=== PATIENT | female | born 1970 | race African-American/Black ===

== ENCOUNTER 2020-07-18 08:43 | Day surgery (SDC) | payer BC, OTHER ==
[~2020-07-18 08:43] MED LIST: Lactated Ringers 1,000 ML IV SCH; Lidocaine 2% 5 ML SDV ONE; Propofol 200 MG/20 ML SDV ONE; Sodium Chloride 0.9% 10 ML SDV IV PRN; Sodium Chloride 0.9% 10 ML Syringe FLUSH PRN; Sodium Chloride 0.9% 2.5 ML Syringe FLUSH PRN; fentaNYL 100 MCG/2 ML SDV ONE
--- NOTE | 2020-07-18 09:40 | PCM.PREANE ---
Preanesthetic Assessment - Anesthesia/Transfusion/Family Hx Anesthesia History: Prior Anesthesia Without Reaction Family History of Anesthesia Reaction: No Transfusion History: No Prior Transfusion(s) - Review of Systems General: No Symptoms Pulmonary: No Symptoms Cardiovascular: No Symptoms Gastrointestinal: No Symptoms Neurological: No Symptoms Other: Reports: None - Physical Assessment NPO Status Date: 07/17/20 Vital Signs: Last Vital Signs Temp 97.3 F 07/18/20 09:11 Pulse 86 07/18/20 09:11 Resp 16 07/18/20 09:11 BP 143/84 H 07/18/20 09:11 Pulse Ox 97 07/18/20 09:11 Height: 5 ft 2 in Weight: 106.594 kg ASA Class: 2 Mental Status: Alert & Oriented x3 Airway Class: Mallampati = 2 Dentition: Reports: Normal Dentition ROM/Head Extension: Full Lungs: Clear to Auscultation, Normal Respiratory Effort Cardiovascular: Regular Rate, Regular Rhythm - Allergies Allergies/Adverse Reactions: Allergies Allergy/AdvReac Type Severity Reaction Status Date / Time No Known Allergies Allergy Verified 07/13/20 09:20 - Blood Blood Available: No - Anesthesia Plan Pre-Op Medication Ordered: None - Acknowledgements Anesthesia Type Planned: General Anesthesia (tiva) Pt an Appropriate Candidate for the Planned Anesthesia: Yes Alternatives and Risks of Anesthesia Discussed w Pt/Guardian: Yes Pt/Guardian Understands and Agrees with Anesthesia Plan: Yes Additional Comments: pmh: mo, dm2- arrival glucose =143, htn, hx of bcg imunization, no hx of TB PLAN: tiva PreAnesthesia Questionnaire Other HEENT History: wears glasses Cardiovascular History: Reports: Hypertension Respiratory History: Reports: TB Other Respiratory History: states in the past had TB while in [place] Gastrointestinal History: Reports: None Genitourinary History: Reports: None 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: Musculoskeletal History: Reports: None Neurological History: Reports: None Psychiatric History: Reports: None Endocrine/Metabolic History: Reports: Diabetes, Type II Hematologic History: Reports: Anemia, Iron Deficiency Immunologic History: Reports: None Oncologic (Cancer) History: Reports: None Dermatologic History: Reports: None - Infectious Disease History Infectious Disease History: Reports: TB Other Infectious Disease History: states had TB in the past while in [place] - Past Surgical History Head Surgeries/Procedures: Reports: None Female Surgical History: Reports: Section - SUBSTANCE USE Smoking Status *Q: Never Smoker - HOME MEDS Home Medications: Home Meds Ferrous Sulfate [Iron] 1 tab PO DAILY 09/08/15 [History] Losartan [Cozaar] 100 mg PO DAILY 09/08/15 [History] metFORMIN [Glucophage] 1,000 mg PO BID 09/08/15 [History] Empagliflozin [Jardiance] 25 mg PO DAILY 07/13/20 [History] Ozempic 0.5 mg SQ WEEKLY 07/13/20 [History] Potassium Chloride [K-Tab] 10 meq PO DAILY 07/13/20 [History] amLODIPine Besylate [Amlodipine Besylate] 10 mg PO DAILY 07/13/20 [History] hydroCHLOROthiazide [Hydrochlorothiazide] 1 tab PO DAILY 07/13/20 [History] - CURRENT (IN HOUSE) MEDS Current Meds: Current Medications Lactated Ringer's (Ringers, Lactated) 1,000 mls @ 125 mls/hr IV ASDIRECTED ZHANG Last Admin: 07/18/20 09:35 Dose: 125 mls/hr Documented by: Sodium Chloride (Saline Flush) 10 ml FLUSH ASDIRECTED PRN PRN Reason: Keep Vein Open Sodium Chloride (Saline Flush) 2.5 ml FLUSH ASDIRECTED PRN PRN Reason: Keep Vein Open Sodium Chloride (Saline Flush) 10 ml FLUSH ASDIRECTED PRN PRN Reason: Keep Vein Open Sodium Chloride (Saline Flush) 2.5 ml FLUSH ASDIRECTED PRN PRN Reason: Keep Vein Open Sodium Chloride (Normal Saline) 10 ml IV ASDIRECTED PRN PRN Reason: IV Use Discontinued Medications Fentanyl (Sublimaze) Confirm Administered Dose 100 mcg .ROUTE .STK-MED ONE Stop: 07/18/20 06:57 Lidocaine (Xylocaine-Mpf 2%) Confirm Administered Dose 5 ml .ROUTE .STK-MED ONE Stop: 07/18/20 06:56 Propofol (Diprivan 20 Ml) Confirm Administered Dose 400 mg .ROUTE .STK-MED ONE Stop: 07/18/20 06:57
--- NOTE | 2020-07-18 10:05 | PCM.OPNOTE ---
- General Post-Op/Procedure Note Date of Surgery/Procedure: 07/18/20 Operative Procedure(s): Screening colonoscopy. Findings: Normal colonoscopy. Pre Op Diagnosis: Screening colonoscopy. Post-Op Diagnosis: Normal colonoscopy. Anesthesia Technique: WILBERTO Primary Surgeon: Donna Bray Complications: None. Condition: Stable
[2020-07-18 10:31] VITALS: BP 121/74; PULSE 81
--- NOTE | 2020-07-18 10:44 | PCM.POSTAN ---
POST ANESTHESIA ASSESSMENT - MENTAL STATUS Mental Status: Alert, Oriented - VITAL SIGNS Vital Signs: Last Vital Signs Temp 97.2 F 07/18/20 10:25 Pulse 81 07/18/20 10:25 Resp 14 07/18/20 10:25 BP 121/74 07/18/20 10:25 Pulse Ox 99 07/18/20 10:25 - RESPIRATORY Respiratory Status: Respiratory Rate WNL, Airway Patent, O2 Saturation Stable - CARDIOVASCULAR CV Status: Pulse Rate WNL, Blood Pressure Stable - GASTROINTESTINAL GI Status: No Symptoms - POST OP HYDRATION Hydration Status: Adequate & Stable
--- NOTE | 2020-07-18 10:44 | PCM48HPAN ---
Post Anesthesia Note - EVALUATION WITHIN 48HRS OF ANESTHETIC Vital Signs in Normal Range: Yes Patient Participated in Evaluation: Yes Respiratory Function Stable: Yes Airway Patent: Yes Cardiovascular Function Stable: Yes Hydration Status Stable: Yes Pain Control Satisfactory: Yes Nausea and Vomiting Control Satisfactory: Yes Mental Status Recovered: Yes Vital Signs: Last Vital Signs Temp 97.2 F 07/18/20 10:25 Pulse 81 07/18/20 10:25 Resp 14 07/18/20 10:25 BP 121/74 07/18/20 10:25 Pulse Ox 99 07/18/20 10:25
--- NOTE | 2020-07-18 21:10 | OR ---
SURGEON: DONNA BRAY MD DATE OF PROCEDURE: 07/18/2020 PREOPERATIVE DIAGNOSIS: Screening colonoscopy. POSTOPERATIVE DIAGNOSIS: Normal colonoscopy. PROCEDURE PERFORMED: Screening colonoscopy. PRIMARY SURGEON: Donna Bray MD. ANESTHESIA: MAC. INSTRUMENT USED: Olympus colonoscope. EXTENT OF EXAM: To the cecum. PREPARATION: Good. LIMITATIONS: None. INDICATIONS FOR EXAMINATION: The patient is a 50-year-old female who presents for screening colonoscopy. The patient and I discussed the procedure, expected perioperative course, and risks including bleeding, infection, or damage to surrounding structures including perforation. The patient verbalized understanding and wishes to proceed. PROCEDURE IN DETAIL: The patient was brought to the endoscopy suite and placed in the left lateral decubitus position. A time-out was completed verifying the patient's name, age, date of , allergies, and procedure to be performed. Monitored anesthesia care was induced and continuous oxygen was provided via face mask throughout the procedure. After adequate sedation was achieved, a digital rectal exam was performed. This exam was within normal limits. A well-lubricated colonoscope was inserted in the rectum and advanced under direct visualization to the level of the cecum. The cecum was identified by both visual and anatomic landmarks. A photograph was taken of the cecal cap, however, I was unable to retroflex the scope within the cecum due to looping of the scope more proximally. The scope was then fully withdrawn while examining the color, texture, anatomy, and integrity of the mucosa from the cecum to the anal canal. The findings were consistent with normal colonic mucosa. The scope was then brought into the rectum and retroflexed to allow visualization of the anal canal opening. This appeared normal and a photograph was taken. The scope was then straightened out and fully withdrawn. The cecum to anus time was 7 minutes. The patient tolerated the procedure well and was transferred to the PACU in stable condition. ENDOSCOPIC DIAGNOSIS: Normal colonoscopy. RECOMMENDATIONS: Follow up in clinic in 10 years. MARY JO / AMY /[id number]
== END 2020-07-18 10:50 | disposition home or self-care (01) ==
LOC: MW.SDS 08:43
PROVIDERS: ATTEND Surgery
DX: Z12.11 Encounter for screening for malignant neoplasm of colon (principal); E11.9 Type 2 diabetes mellitus without complications; I10 Essential (primary) hypertension; E66.01 Morbid (severe) obesity due to excess calories; Z79.899 Other long term (current) drug therapy; Z79.84 Long term (current) use of oral hypoglycemic drugs; Z68.41 Body mass index [BMI] 40.0-44.9, adult; Z01.812 Encounter for preprocedural laboratory examination; Z20.828 Contact with and (suspected) exposure to other viral communicable diseases
CPT/HCPCS: 45378; 82962; J2001; J2704; J3010; J7120; 00812

== ENCOUNTER 2020-07-24 07:38 | Observation (INO) | payer BC, OTHER ==
--- NOTE | 2020-07-24 08:02 | EDM.PDOC ---
ED [facility] GENERAL MEDICAL PROBLEM - General Chief Complaint: General Stated Complaint: RT SIDE OF BODY IS NUMB Time Seen by Provider: 07/24/20 07:40 Source of Information: Reports: Patient, Old Records History Limitations: Reports: No Limitations - History of Present Illness INITIAL COMMENTS - FREE TEXT/NARRATIVE: There is a very pleasant 50-year-old female with a past medical history of diabetes mellitus and hypertension presenting with right-sided body numbness. She states that around 0630 this morning, she woke up from sleep with numbness to her entire right upper extremity including the hand, the right thigh, and the right calf. No numbness involving the face or the torso. She states that this numb sensation has improved throughout the morning but has not totally gone away. She denies any facial numbness or weakness, vision changes, dysarthria, dysphasia, nausea, vomiting, headache, neck pain or stiffness, extremity weakness, gait changes, or history of CVA or TIA. No recent history of any head trauma. ROS: A 10-point review of systems was negative, except as noted in the HPI (or in the ROS section of this note). Past medical history: Reviewed, no additional pertinent history. Surgical history: Reviewed in system, no additional pertinent history. Social history: Reviewed in system, no additional pertinent history. Family history: Reviewed in system, no additional pertinent history. PHYSICAL EXAM Vital signs reviewed. Nursing notes reviewed. Constitutional: Awake, alert, non-distressed. Head: Normocephalic, atraumatic. Eyes: EOMI, conjunctiva normal, no discharge, no scleral icterus. Pupils 3 mm bilaterally. Ears, Nose, Throat: External ears and nose normal, moist oral mucosa. Cardiovascular: 2+ radial pulse, capillary refill less than 2 seconds. Pulmonary: normal work of breathing, no accessory muscle use. Abdomen/GI: Soft, nontender, nondistended, no guarding or rigidity, no masses. Musculoskeletal: No deformities. Integumentary: Appropriate color for ethnicity, warm, dry, no pallor or jaundice, no rash. Neurologic: Awake, alert, and oriented x3. Cranial nerves II through XII intact. No facial droop or dysarthria. No temporal artery tenderness. Supple neck with normal range of motion. No pronator drift. Normal fjletr-kbrj-aptele and jhly-mp-hwht. No dysdiadochokinesia. 5/5 strength in all extremities. Sensation intact to light touch x4. Normal gait. Normal visual laureano, no field cuts. Able to sit, stand, and ambulate without assistance. Psychiatric: Appropriate mood and affect, normal thought process. - Related Data Allergies Allergy/AdvReac Type Severity Reaction Status Date / Time No Known Allergies Allergy Verified 07/24/20 07:43 Home Meds: Home Meds Ferrous Sulfate [Iron] 1 tab PO DAILY 09/08/15 [History] Losartan [Cozaar] 100 mg PO DAILY 09/08/15 [History] metFORMIN [Glucophage] 1,000 mg PO BID 09/08/15 [History] Empagliflozin [Jardiance] 25 mg PO DAILY 07/13/20 [History] Ozempic 0.5 mg SQ WEEKLY 07/13/20 [History] Potassium Chloride [K-Tab ER] 10 meq PO DAILY 07/13/20 [History] amLODIPine Besylate [Amlodipine Besylate] 10 mg PO DAILY 07/13/20 [History] hydroCHLOROthiazide [Hydrochlorothiazide] 1 tab PO DAILY 07/13/20 [History] Past Medical History Other HEENT History: wears glasses Cardiovascular History: Reports: Hypertension Respiratory History: Reports: TB Other Respiratory History: states in the past had TB while in [place] Gastrointestinal History: Reports: None Genitourinary History: Reports: None 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: Musculoskeletal History: Reports: None Neurological History: Reports: None Psychiatric History: Reports: None Endocrine/Metabolic History: Reports: Diabetes, Type II, Obesity/BMI 30+ Hematologic History: Reports: Anemia, Iron Deficiency Immunologic History: Reports: None Oncologic (Cancer) History: Reports: None Dermatologic History: Reports: None - Infectious Disease History Infectious Disease History: Reports: Chicken Pox Other Infectious Disease History: states had TB in the past while in [place] - Past Surgical History Head Surgeries/Procedures: Reports: None GI Surgical History: Reports: Colonoscopy Female Surgical History: Reports: Section Social & Family History - Family History Family Medical History: Noncontributory - Tobacco Use Smoking Status *Q: Never Smoker - Recreational Drug Use Recreational Drug Use: No ED ROS GENERAL - Review of Systems Review Of Systems: See Below ED EXAM, NEURO - Physical Exam Exam: See Below EKG INTERPRETATION EKG Interpretation Comments: 12-Lead ECG Interpretation Acquired: 8:43 AM Rhythm: Sinus rhythm Rate: 79 bpm [place]: Normal Intervals: Normal Ectopy: None RV Strain: No obvious RV strain pattern. ST Segments/T-Waves: No notable changes Acute Ischemic Changes: None apparent Interpretation: No STEMI Course - Vital Signs Text/Narrative:: 50-year-old female with right-sided numbness. Patient hemodynamically stable, afebrile, well-appearing, looks nontoxic. Differential diagnosis includes but is not limited to: CVA, TIA, neuropathy, vitamin deficiency, etc. 0820: Neurologic examination is negative except for subjective diminished sensation over the right upper and lower extremities. Otherwise no focal findings. Given very minor symptoms, patient is not a candidate for systemic thrombolysis and we will not call a stroke code, there are no signs to suggest a large vessel occlusion. We discussed the work-up for CVA versus TIA. Ordered aspirin, IV access, labs, ECG, and CT scans. 1057: Noncontrast head CT shows an old right-sided infarct of the caudate nucleus but no acute changes. Patient had some mild throat itching after receiving IVP contrast but has no convincing signs of anaphylaxis. Did order some p.o. diphenhydramine but she does not need epinephrine or steroids at this point. Awaiting CTA reads of head and neck. CBC reassuring. Coagulation markers normal. Chemistry panel shows moderate hypokalemia and hyperglycemia. Troponin testing negative. 1126: Angiogram series of the head and neck are negative. We are waiting for a COVID test. Plan for observation stay for reevaluation, possible MRI, and correction of hypokalemia. I spoke with the hospitalist Dr. Scott Padilla who agrees to admit. Last Recorded V/S: Last Vital Signs Temp 36.3 C 07/24/20 07:44 Pulse 77 07/24/20 09:14 Resp 17 07/24/20 08:44 BP 125/67 07/24/20 09:14 Pulse Ox 99 07/24/20 08:44 - Orders/Labs/Meds Orders: Active Orders 24 hr Category Date Time Status Admission Status [Patient Status] [ADT] Stat ADT 07/24/20 11:25 Ordered Assess Neurological Status [RC] CONTINUOUS Care 07/24/20 08:16 Active Cardiac Monitoring [RC] CONTINUOUS Care 07/24/20 08:16 Active EKG 12 Lead [EKG Documentation Completion] [RC] STAT Care 07/24/20 08:17 Active Height and Weight [RC] UPON Care 07/24/20 08:16 Active NIH Stroke Scale [RC] STAT Care 07/24/20 08:16 Active Oxygen Therapy, ED [RC] ASDIRECTED Care 07/24/20 08:16 Active CORONAVIRUS COVID-19 ALONDRA [MOLEC] Stat Lab 07/24/20 10:39 Received Sodium Chloride 0.9% [Normal Saline] Med 07/24/20 08:16 Active 10 ml IV ASDIRECTED PRN Sodium Chloride 0.9% [Saline Flush] Med 07/24/20 08:16 Active 10 ml FLUSH ASDIRECTED PRN Sodium Chloride 0.9% [Saline Flush] Med 07/24/20 08:16 Active 2.5 ml FLUSH ASDIRECTED PRN Peripheral IV Insertion Adult [OM.PC] Stat Oth 07/24/20 08:16 Ordered Peripheral IV Insertion Adult [OM.PC] Stat Oth 07/24/20 08:16 Ordered Medication Orders Sodium Chloride (Saline Flush) 10 ml FLUSH ASDIRECTED PRN PRN Reason: Keep Vein Open Last Admin: 07/24/20 08:27 Dose: 10 ml Documented by: KAJALKER Sodium Chloride (Saline Flush) 2.5 ml FLUSH ASDIRECTED PRN PRN Reason: Keep Vein Open Last Admin: 07/24/20 08:27 Dose: 2.5 ml Documented by: FEDLKER Sodium Chloride (Normal Saline) 10 ml IV ASDIRECTED PRN PRN Reason: IV Use Labs: Laboratory Tests 07/24/20 07/24/20 07/24/20 Range/Units 08:35 08:35 08:35 WBC 10.22 (4.0-11.0) K/uL RBC 5.29 (4.30-5.90) M/uL Hgb 14.2 (12.0-16.0) g/dL Hct 43.3 (36.0-46.0) % MCV 81.9 (80.0-98.0) fL MCH 26.8 L (27.0-32.0) pg MCHC 32.8 (31.0-37.0) g/dL RDW Std Deviation 46.9 (28.0-62.0) fl RDW Coeff of Guy 16 H (11.0-15.0) % Plt Count 303 (150-400) K/uL MPV 10.30 (7.40-12.00) fL Neut % (Auto) 58.9 (48.0-80.0) % Lymph % (Auto) 33.2 (16.0-40.0) % Gonzales % (Auto) 6.0 (0.0-15.0) % Eos % (Auto) 1.6 (0.0-7.0) % Baso % (Auto) 0.3 (0.0-1.5) % Neut # (Auto) 6.0 H (1.4-5.7) K/uL Lymph # (Auto) 3.4 H (0.6-2.4) K/uL Gonzales # (Auto) 0.6 (0.0-0.8) K/uL Eos # (Auto) 0.2 (0.0-0.7) K/uL Baso # (Auto) 0.0 (0.0-0.1) K/uL Nucleated RBC % 0.0 /100WBC Nucleated RBCs # 0 K/uL INR 1.00 APTT 26.7 (18.6-31.3) SEC Sodium 138 (136-145) mmol/L Potassium 2.7 L (3.5-5.1) mmol/L Chloride 101 (98-107) mmol/L Carbon Dioxide 27.6 (21.0-32.0) mmol/L BUN 8 (7.0-18.0) mg/dL Creatinine 0.8 (0.6-1.0) mg/dL Est Cr Clr Drug Dosing 65.80 mL/min Estimated GFR (MDRD) > 60.0 ml/min Glucose 159 H (74-106) mg/dL Calcium 9.2 (8.5-10.1) mg/dL Total Bilirubin 0.4 (0.2-1.0) mg/dL AST 16 (15-37) IU/L ALT 34 (14-63) IU/L Alkaline Phosphatase 83 (46-116) U/L Troponin I < 0.050 (0.000-0.056) ng/mL Total Protein 8.0 (6.4-8.2) g/dL Albumin 3.7 (3.4-5.0) g/dL Globulin 4.3 H (2.6-4.0) g/dL Albumin/Globulin Ratio 0.9 (0.9-1.6) Meds: Medications Generic Name Dose Route Start Last Admin Trade Name Freq PRN Reason Stop Dose Admin Sodium Chloride 10 ml 07/24/20 08:16 07/24/20 08:27 Saline Flush FLUSH 10 ml ASDIRECTED PRN Administration Keep Vein Open Sodium Chloride 2.5 ml 07/24/20 08:16 07/24/20 08:27 Saline Flush FLUSH 2.5 ml ASDIRECTED PRN Administration Keep Vein Open Sodium Chloride 10 ml 07/24/20 08:16 Normal Saline IV ASDIRECTED PRN IV Use Discontinued Medications Generic Name Dose Route Start Last Admin Trade Name Freq PRN Reason Stop Dose Admin Aspirin 324 mg 07/24/20 08:16 07/24/20 08:27 Aspirin PO 07/24/20 08:17 324 mg ONETIME ONE Administration Diphenhydramine HCl 25 mg 07/24/20 10:17 07/24/20 10:22 Benadryl PO 07/24/20 10:18 25 mg ONETIME ONE Administration Magnesium Sulfate 2 gm/ Premix 50 mls @ 50 mls/hr 07/24/20 09:25 07/24/20 09:40 IV 07/24/20 10:24 50 mls/hr ONETIME ONE Administration Potassium Chloride 60 meq 07/24/20 09:25 07/24/20 09:40 Potassium Chloride PO 07/24/20 09:26 60 meq ONETIME ONE Administration Departure - Departure Time of Disposition: 11:26 Disposition: Refer to Observation Condition: Good Clinical Impression: Hypokalemia, Paresthesias - Discharge Information Referrals: Compa Thacker MD [Primary Care Provider] - Forms: ED Department Discharge Sepsis Event Note (ED) - Evaluation Sepsis Screening Result: No Definite Risk - Focused Exam Vital Signs: Vital Signs Temp Pulse Resp BP Pulse Ox 07/24/20 09:14 77 125/67 07/24/20 08:44 87 17 142/75 H 99 07/24/20 07:44 36.3 C 88 16 152/80 H 100 - My Orders Last 24 Hours: My Active Orders 07/24/20 08:16 Assess Neurological Status [RC] CONTINUOUS Cardiac Monitoring [RC] CONTINUOUS Height and Weight [RC] UPON NIH Stroke Scale [RC] STAT Oxygen Therapy, ED [RC] ASDIRECTED Sodium Chloride 0.9% [Normal Saline] 10 ml IV ASDIRECTED PRN Sodium Chloride 0.9% [Saline Flush] 10 ml FLUSH ASDIRECTED PRN Sodium Chloride 0.9% [Saline Flush] 2.5 ml FLUSH ASDIRECTED PRN Peripheral IV Insertion Adult [OM.PC] Stat Peripheral IV Insertion Adult [OM.PC] Stat 07/24/20 08:17 EKG 12 Lead [EKG Documentation Completion] [RC] STAT 07/24/20 11:25 Admission Status [Patient Status] [ADT] Stat - Assessment/Plan Last 24 Hours: My Active Orders 07/24/20 08:16 Assess Neurological Status [RC] CONTINUOUS Cardiac Monitoring [RC] CONTINUOUS Height and Weight [RC] UPON NIH Stroke Scale [RC] STAT Oxygen Therapy, ED [RC] ASDIRECTED Sodium Chloride 0.9% [Normal Saline] 10 ml IV ASDIRECTED PRN Sodium Chloride 0.9% [Saline Flush] 10 ml FLUSH ASDIRECTED PRN Sodium Chloride 0.9% [Saline Flush] 2.5 ml FLUSH ASDIRECTED PRN Peripheral IV Insertion Adult [OM.PC] Stat Peripheral IV Insertion Adult [OM.PC] Stat 07/24/20 08:17 EKG 12 Lead [EKG Documentation Completion] [RC] STAT 07/24/20 11:25 Admission Status [Patient Status] [ADT] Stat
[2020-07-24] MEDS ORDERED: Sodium Chloride 0.9% 10 ML SDV IV PRN (08:16)
[2020-07-24] MEDS ORDERED: Sodium Chloride 0.9% 2.5 ML Syringe FLUSH PRN (08:16)
[2020-07-24] MEDS ORDERED: Aspirin 81 MG Tab.Chew PO ONE (08:16)
[2020-07-24] MEDS ORDERED: Sodium Chloride 0.9% 10 ML Syringe FLUSH PRN (08:16)
[2020-07-24 09:11] LABS: BLOOD UREA NITROGEN,BUN 8 mg/dL (7.0-18.0); CARBON DIOXIDE,CO2 27.6 mmol/L (21.0-32.0); CHLORIDE,CL 101 mmol/L (98-107); GLUCOSE RANDOM 159 mg/dL (74-106); POTASSIUM,K 2.7 mmol/L (3.5-5.1); SODIUM,NA 138 mmol/L (136-145)
[2020-07-24] MEDS ORDERED: Magnesium Sulfate/Water 2 GM in Premix Bag 1 BAG IV ONE (09:25)
[2020-07-24] MEDS ORDERED: Potassium Chloride 10% 20 MEQ/15 ML Soln 30 ML UD Cup PO ONE (09:25)
[2020-07-24] MEDS ORDERED: diphenhydrAMINE 25 MG Cap PO ONE (10:17)
--- NOTE | 2020-07-24 10:41 | CT ---
INDICATION: Right upper extremity and right lower extremity numbness. COMPARISON: April 20, 2019 TECHNIQUE: CT examination of the head was performed as axial sections without intravenous contrast. Images were obtained from the vertex of the skull through the skull base. Please note that all CT scans at this facility use dose modulation, iterative reconstruction, and/or weight-based dosing when appropriate to reduce radiation dose to as low as reasonably achievable. FINDINGS: The brain shows no sign of mass lesion, mass effect, hemorrhage, or edema. There are involutional changes. There is moderate cortical atrophy and there is moderate white matter disease. There is no hydrocephalus. The visualized portions of the orbits are normal in appearance. The osseous structures are normal in appearance with no sign of abnormality in the skull base or calvarium. There is encephalomalacia involving the head of the caudate nucleus on the right extending to the anterior limb of the right internal capsule. This is unchanged and consistent with an old infarct. IMPRESSION: Remote right-sided subcortical infarct. Involutional changes consist of atrophy and white matter disease. Stable examination without acute focal finding when compared to April 20, [address] scans at this facility use dose modulation, iterative reconstruction, and/or weight-based dosing when appropriate to reduce radiation dose to as low as reasonably achievable. Dictated by Tito Clements MD @ Jul 24 2020 10:37AM Signed by Dr. Tito Clements @ Jul 24 2020 10:40AM
--- NOTE | 2020-07-24 11:13 | CT ---
INDICATION: Right arm and leg numbness. TECHNIQUE: After standard noncontrast head CT, high resolution axial CT images acquired through the head and neck following rapid intravenous administration of iodinated contrast. Multiplanar MIPS of cranial and cervical vasculature performed. FINDINGS: Noncontrast head CT: There is hypodensity in the deep right frontal lobe white matter consistent with an old infarct. The melton-white matter differentiation elsewhere is maintained. There are nonspecific white matter hypodensities commonly seen with chronic small vessel ischemic disease. There is no intracranial hemorrhage or fluid collection. The ventricles and basal cisterns are clear. CTA head: There is scattered intracranial atherosclerotic disease. There is no significant stenosis or large vessel occlusion. No aneurysm or vascular malformation is identified. CTA neck: There is no significant carotid or vertebral artery stenosis or dissection. 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 No large vessel occlusion. No significant carotid or vertebral artery stenosis or dissection. Charlie Jean Baptiste MD Neurointerventional [employer] Please note that all CT scans at this facility use dose modulation, iterative reconstruction, and/or weight-based dosing when appropriate to reduce radiation dose to as low as reasonably achievable. Dictated by Charlie Jean Baptiste MD @ Jul 24 2020 12:26PM Signed by Dr. Charlie Jean Baptiste @ Jul 24 2020 12:26PM
--- NOTE | 2020-07-24 16:20 | PCM.HP.2 ---
H&P History of Present Illness - General Date of Service: 07/24/20 Admit Problem/Dx: Admission Diagnosis/Problem Admission Diagnosis/Problem Hypokalemia - History of Present Illness Initial Comments - Free Text/Narative: 50 yo female with pmh of DM, HTN who woke up this morning with numbness in her right arm, thigh and foot. She denied any weakness or slurred speech. She brought her kids to school then went to the ED. CT scan of head showed an old stroke but nothing acute. She was noted to be hypokalemic with a potassium of 2.7. Last week she had a bowel prep and underwent a screening colonoscopy. - Related Data Allergies/Adverse Reactions: Allergies Allergy/AdvReac Type Severity Reaction Status Date / Time No Known Allergies Allergy Verified 07/24/20 07:43 Home Medications: Home Meds Ferrous Sulfate [Iron] 325 mg PO DAILY 09/08/15 [History] Losartan [Cozaar] 100 mg PO DAILY 09/08/15 [History] metFORMIN [Glucophage] 1,000 mg PO BID 09/08/15 [History] Empagliflozin [Jardiance] 25 mg PO DAILY 07/13/20 [History] Ozempic 0.5 mg SQ WEEKLY 07/13/20 [History] Potassium Chloride [K-Tab ER] 10 meq PO DAILY 07/13/20 [History] amLODIPine Besylate [Amlodipine Besylate] 10 mg PO DAILY 07/13/20 [History] hydroCHLOROthiazide [Hydrochlorothiazide] 1 tab PO DAILY 07/13/20 [History] Past Medical History Other HEENT History: wears glasses Cardiovascular History: Reports: Hypertension Respiratory History: Reports: TB Other Respiratory History: states in the past had TB while in [place] Gastrointestinal History: Reports: None Genitourinary History: Reports: None [employer] History: Reports: Musculoskeletal History: Reports: None Neurological History: Reports: None Psychiatric History: Reports: None Endocrine/Metabolic History: Reports: Diabetes, Type II, Obesity/BMI 30+ Hematologic History: Reports: Anemia, Iron Deficiency Immunologic History: Reports: None Oncologic (Cancer) History: Reports: None Dermatologic History: Reports: None - Infectious Disease History Infectious Disease History: Reports: Chicken Pox Other Infectious Disease History: states had TB in the past while in [place] - Past Surgical History Head Surgeries/Procedures: Reports: None GI Surgical History: Reports: Colonoscopy Female Surgical History: Reports: Section Social & Family History - Family History Family Medical History: Noncontributory - Tobacco Use Smoking Status *Q: Never Smoker Second Hand Smoke Exposure: No - Caffeine Use Caffeine Use: Reports: Coffee, Tea - Recreational Drug Use Recreational Drug Use: No H&P Review of Systems - Review of Systems: Review Of Systems: See Below Exam - Exam Exam: See Below - Vital Signs Vital Signs: Last Vital Signs Temp 36.2 C 07/24/20 13:00 Pulse 71 07/24/20 13:00 Resp 18 07/24/20 13:00 BP 134/75 07/24/20 13:00 Pulse Ox 97 07/24/20 13:00 Weight: 102.3 kg - Exam General: Alert, Oriented HEENT: Mucosa Moist & [place] Lungs: Clear to Auscultation, Normal Respiratory Effort Cardiovascular: Regular Rate, Regular Rhythm GI/Abdominal Exam: Normal Bowel Sounds, Soft, Non-Tender Extremities: Non-Tender, No Pedal Edema Skin: Warm, Dry, Intact - Patient Data Lab Results Last 24 hrs: Laboratory Results - last 24 hr 07/24/20 07/24/20 07/24/20 Range/Units 08:35 08:35 08:35 WBC 10.22 (4.0-11.0) K/uL RBC 5.29 (4.30-5.90) M/uL Hgb 14.2 (12.0-16.0) g/dL Hct 43.3 (36.0-46.0) % MCV 81.9 (80.0-98.0) fL MCH 26.8 L (27.0-32.0) pg MCHC 32.8 (31.0-37.0) g/dL RDW Std Deviation 46.9 (28.0-62.0) fl RDW Coeff of Guy 16 H (11.0-15.0) % Plt Count 303 (150-400) K/uL MPV 10.30 (7.40-12.00) fL Neut % (Auto) 58.9 (48.0-80.0) % Lymph % (Auto) 33.2 (16.0-40.0) % [place] % (Auto) 6.0 (0.0-15.0) % Eos % (Auto) 1.6 (0.0-7.0) % Baso % (Auto) 0.3 (0.0-1.5) % Neut # (Auto) 6.0 H (1.4-5.7) K/uL Lymph # (Auto) 3.4 H (0.6-2.4) K/uL [place] # (Auto) 0.6 (0.0-0.8) K/uL Eos # (Auto) 0.2 (0.0-0.7) K/uL Baso # (Auto) 0.0 (0.0-0.1) K/uL Nucleated RBC % 0.0 /100WBC Nucleated RBCs # 0 K/uL INR 1.00 APTT 26.7 (18.6-31.3) SEC Sodium 138 (136-145) mmol/L Potassium 2.7 L (3.5-5.1) mmol/L Chloride 101 (98-107) mmol/L Carbon Dioxide 27.6 (21.0-32.0) mmol/L BUN 8 (7.0-18.0) mg/dL Creatinine 0.8 (0.6-1.0) mg/dL Est Cr Clr Drug Dosing 65.80 mL/min Estimated GFR (MDRD) > 60.0 ml/min Glucose 159 H (74-106) mg/dL Calcium 9.2 (8.5-10.1) mg/dL Magnesium (1.8-2.4) mg/dL Total Bilirubin 0.4 (0.2-1.0) mg/dL AST 16 (15-37) IU/L ALT 34 (14-63) IU/L Alkaline Phosphatase 83 (46-116) U/L Troponin I < 0.050 (0.000-0.056) ng/mL Total Protein 8.0 (6.4-8.2) g/dL Albumin 3.7 (3.4-5.0) g/dL Globulin 4.3 H (2.6-4.0) g/dL Albumin/Globulin Ratio 0.9 (0.9-1.6) SARS-CoV-2 RNA (ALONDRA) (NEGATIVE) 07/24/20 07/24/20 Range/Units 08:35 10:39 WBC (4.0-11.0) K/uL RBC (4.30-5.90) M/uL Hgb (12.0-16.0) g/dL Hct (36.0-46.0) % MCV (80.0-98.0) fL MCH (27.0-32.0) pg MCHC (31.0-37.0) g/dL RDW Std Deviation (28.0-62.0) fl RDW Coeff of Guy (11.0-15.0) % Plt Count (150-400) K/uL MPV (7.40-12.00) fL Neut % (Auto) (48.0-80.0) % Lymph % (Auto) (16.0-40.0) % [place] % (Auto) (0.0-15.0) % Eos % (Auto) (0.0-7.0) % Baso % (Auto) (0.0-1.5) % Neut # (Auto) (1.4-5.7) K/uL Lymph # (Auto) (0.6-2.4) K/uL [place] # (Auto) (0.0-0.8) K/uL Eos # (Auto) (0.0-0.7) K/uL Baso # (Auto) (0.0-0.1) K/uL Nucleated RBC % /100WBC Nucleated RBCs # K/uL INR APTT (18.6-31.3) SEC Sodium (136-145) mmol/L Potassium (3.5-5.1) mmol/L Chloride (98-107) mmol/L Carbon Dioxide (21.0-32.0) mmol/L BUN (7.0-18.0) mg/dL Creatinine (0.6-1.0) mg/dL Est Cr Clr Drug Dosing mL/min Estimated GFR (MDRD) ml/min Glucose (74-106) mg/dL Calcium (8.5-10.1) mg/dL Magnesium 2.0 (1.8-2.4) mg/dL Total Bilirubin (0.2-1.0) mg/dL AST (15-37) IU/L ALT (14-63) IU/L Alkaline Phosphatase (46-116) U/L Troponin I (0.000-0.056) ng/mL Total Protein (6.4-8.2) g/dL Albumin (3.4-5.0) g/dL Globulin (2.6-4.0) g/dL Albumin/Globulin Ratio (0.9-1.6) SARS-CoV-2 RNA (ALONDRA) NEGATIVE (NEGATIVE) Result Diagrams: 07/24/20 08:35 07/24/20 08:35 Sepsis Event Note - Evaluation Sepsis Screening Result: No Definite Risk - Focused Exam Vital Signs: Vital Signs Temp Pulse Resp BP Pulse Ox 07/24/20 13:00 36.2 C 71 18 134/75 97 07/24/20 09:14 77 125/67 07/24/20 08:44 87 17 142/75 H 99 07/24/20 07:44 36.3 C 88 16 152/80 H 100 Problem List Initiated/Reviewed/Updated: Yes Orders Last 24hrs: Active Orders 24 hr Category Date Time Status Admission Status [Patient Status] [ADT] Stat ADT 07/24/20 11:25 Active Antiembolic Devices [RC] PER UNIT ROUTINE Care 07/24/20 16:14 Ordered Assess Neurological Status [RC] CONTINUOUS Care 07/24/20 08:16 Active Cardiac Monitoring [RC] CONTINUOUS Care 07/24/20 08:16 Active EKG 12 Lead [EKG Documentation Completion] [RC] STAT Care 07/24/20 08:17 Active Height and Weight [RC] UPON Care 07/24/20 08:16 Active NIH Stroke Scale [RC] STAT Care 07/24/20 08:16 Active Oxygen Therapy [RC] PRN Care 07/24/20 16:13 Ordered Oxygen Therapy, ED [RC] ASDIRECTED Care 07/24/20 08:16 Active Up ad [place] [RC] ASDIRECTED Care 07/24/20 16:13 Ordered VTE/DVT Education [RC] PER UNIT ROUTINE Care 07/24/20 16:13 Ordered Vital Signs [RC] Q4H Care 07/24/20 16:13 Ordered [place] [employer] Diet [DIET] Diet 07/24/20 Breakfast Active BASIC METABOLIC PANEL,BMP [CHEM] AM Lab 07/25/20 05:11 Ordered BASIC METABOLIC PANEL,BMP [CHEM] Routine Lab 07/24/20 18:00 Ordered CBC WITH AUTO DIFF [HEME] AM Lab 07/25/20 05:11 Ordered Sodium Chloride 0.9% [Normal Saline] Med 07/24/20 08:16 Active 10 ml IV ASDIRECTED PRN Sodium Chloride 0.9% [Saline Flush] Med 07/24/20 08:16 Active 10 ml FLUSH ASDIRECTED PRN Sodium Chloride 0.9% [Saline Flush] Med 07/24/20 08:16 Active 2.5 ml FLUSH ASDIRECTED PRN Peripheral IV Insertion Adult [OM.PC] Stat Oth 07/24/20 08:16 Ordered Peripheral IV Insertion Adult [OM.PC] Stat Oth 07/24/20 08:16 Ordered Sequential Compression Device [OM.PC] Per Unit Routine Oth 07/24/20 16:14 Ordered Resuscitation Status Routine Resus Stat 07/24/20 16:13 Ordered Medication Orders Sodium Chloride (Saline Flush) 10 ml FLUSH ASDIRECTED PRN PRN Reason: Keep Vein Open Last Admin: 07/24/20 08:27 Dose: 10 ml Documented by: THAO Sodium Chloride (Saline Flush) 2.5 ml FLUSH ASDIRECTED PRN PRN Reason: Keep Vein Open Last Admin: 07/24/20 08:27 Dose: 2.5 ml Documented by: FEDLKER Sodium Chloride (Normal Saline) 10 ml IV ASDIRECTED PRN PRN Reason: IV Use Assessment/Plan Comment:: 50 yo female with right sided paresthesias and hypokalemia. She was given 60 mg of potassium and her paresthesias have resolved. She could be symptomatic from her low potassium but will check MRI brain. Patient takes potassium supplements regularly. Recent bowel prep or her HCTZ medicine may have caused her low potassium. With old stroke seen on CT scan patient should be on ASA and statin.
[2020-07-24] MEDS: Insulin Aspart 100 Units/ML 3 ML Pen SUBCUT SCH (17:19)
[2020-07-24 18:37] LABS: BLOOD UREA NITROGEN,BUN 7 mg/dL (7.0-18.0); CARBON DIOXIDE,CO2 28.3 mmol/L (21.0-32.0); CHLORIDE,CL 103 mmol/L (98-107); GLUCOSE RANDOM 156 mg/dL (74-106); POTASSIUM,K 3.1 mmol/L (3.5-5.1); SODIUM,NA 139 mmol/L (136-145)
[2020-07-24] MEDS ORDERED: Potassium Chloride 20 MEQ Tab.ER PO ONE (18:53)
[2020-07-25 06:12] LABS: BLOOD UREA NITROGEN,BUN 6 mg/dL (7.0-18.0); CARBON DIOXIDE,CO2 27.6 mmol/L (21.0-32.0); CHLORIDE,CL 104 mmol/L (98-107); GLUCOSE RANDOM 124 mg/dL (74-106); POTASSIUM,K 3.4 mmol/L (3.5-5.1); SODIUM,NA 140 mmol/L (136-145)
[2020-07-25] MEDS: Insulin Aspart 100 Units/ML 3 ML Pen SUBCUT SCH ×2 (07:03→12:10)
[2020-07-25] MEDS ORDERED: Potassium Chloride 20 MEQ Tab.ER PO ONE (07:57)
[2020-07-25] MEDS ORDERED: Losartan 50 MG Tab PO SCH (09:00)
[2020-07-25] MEDS ORDERED: Ferrous Sulfate 325 MG Tab PO SCH (09:00)
[2020-07-25] MEDS ORDERED: amLODIPine 5 MG Tab PO SCH (09:00)
[2020-07-25] MEDS ORDERED: Gadobenate Dimeglumine 529 MG/ML 20 ML SDV IVPUSH STA (09:24)
--- NOTE | 2020-07-25 10:34 | MR ---
INDICATION: Right side paresthesias. TECHNIQUE: Sagittal and axial T1 axial FLAIR axial T2, diffusion-weighted susceptibility weighted and gadolinium-enhanced volumetric T1 weighted images. COMPARISON: CT brain dated 07/24/2020. FINDINGS: There is a small focus of diffusion restriction, FLAIR and T2 hyperintensity within the left thalamus consistent with recent lacunar infarction. No associated hemorrhage or mass effect. Focal area of encephalomalacia and gliosis involves the right lentiform nucleus and extends into the anterior Garcia radiata/frontal lobe white matter. Associated ex vacuo dilatation of the right frontal horn. Few additional small foci of FLAIR and T2 hyperintensity scattered within bilateral cerebral white matter consistent with mild chronic microvascular ischemia. Brainstem and cerebellum appear normal. There are no enhancing intra-axial or extra-axial lesions. IMPRESSION: 1. Small recent (acute to early subacute) lacunar type infarction within the left thalamus without hemorrhage or mass effect. 2. Stable chronic infarction and volume loss involves the right frontal lobe white matter and adjacent basal ganglia. Dictated by Jack Sykes MD @ Jul 25 2020 10:29AM Signed by Dr. Jack Sykes @ Jul 25 2020 10:32AM
[2020-07-25] MEDS ORDERED: Aspirin 81 MG Tab.Chew PO SCH (10:45)
[2020-07-25 11:04] LABS: HEMOGLOBIN A1C 7.6 % (4.5-6.2)
[2020-07-25] MEDS ORDERED: atorvaSTATin 40 MG Tab PO SCH ×3 (11:22→21:00)
--- NOTE | 2020-07-25 11:49 | PCM.DCSUM1 ---
Discharge Summary - Hospital Course Brief History: 50 yo female with pmh of DM, HTN who woke up this morning with numbness in her right arm, thigh and foot. She denied any weakness or slurred speech. She brought her kids to school then went to the ED. CT scan of head showed an old stroke but nothing acute. She was noted to be hypokalemic with a potassium of 2.7. Last week she had a bowel prep and underwent a screening colonoscopy. Diagnosis: Stroke: No - Discharge Data Discharge Date: 07/25/20 Discharge Disposition: Home, Self-Care 01 Condition: Stable - Referral to Home Health Primary Care Physician: Compa Thacker MD - Discharge Diagnosis/Problem(s) (1) Ischemic cerebrovascular accident (CVA) SNOMED Code(s): 858883479 ICD Code: I63.9 - CEREBRAL INFARCTION, UNSPECIFIED Status: Acute Current Visit: Yes (2) Hypokalemia SNOMED Code(s): 28503054 ICD Code: E87.6 - HYPOKALEMIA Status: Acute Current Visit: Yes (3) Paresthesias SNOMED Code(s): 32873499 ICD Code: R20.2 - PARESTHESIA OF SKIN Status: Acute Current Visit: Yes - Patient Summary/Data Hospital Course: Admitting diagnosis Right-sided paresthesias Hypokalemia Discharge diagnoses Acute ischemic CVA Right-sided paresthesiasresolved Hypokalemiaresolved Other PMH DM type II HTN Obesity Mike was admitted secondary to right-sided paresthesias and hypokalemia. In the ED head CT was obtained which showed an old infarct in the right frontal lobe. Head and neck CTA were obtained No large vessel occlusion and no significant carotid or vertebral artery stenosis or dissection were noted. She was admitted and monitored on telemetry. No events noted on telemetry no arrhythmias. Blood pressure has been well controlled 130s to 140s systolically. Paresthesias resolved within the ER. Hypokalemia was treated with IV and p.o. supplementation. This morning potassium is 3.4. MRI with and without contrast of the brain was obtained this morning. Brain MRI revealed a small acute early subacute lacunar type infarct action within the left thalamus without hemorrhage or mass-effect. It continued to show old infarct in the right frontal lobe as well. She was counseled on MRI findings. Lipid panel obtained which shows total cholesterol 163 LDL 85 HDL 69 triglycerides 47 A1c 7.6. She was counseled on starting high-dose atorvastatin 80 mg daily for prevention of further strokes. As well as aspirin 81 mg daily. Hospitalist service recommended further monitoring though patient very eager to leave today. She is stable no further symptoms noted. She will be discharged home today she is to continue her amlodipine and monitor blood pressures at home. She is to continue to watch her diet and continue Jardiance and metformin for diabetes. She is to take aspirin and statin daily she was counseled on side effects to monitor when starting statin including myalgias. She will be discharged home with Zio patch x14 days. She may need further work-up for hypercoagulable state due to her age and multiple CVAs. She does not smoke or drink alcohol. PT OT and speech were not consulted as no further deficits were noted. Follow-up will be made with PCP Dr. Thacker and neurology Dr. Lizarraga. She was counseled on stroke symptoms and when to return to the ER including [facility] She is to return to the ER or clinic sooner if concerns should arise. - Patient Instructions Diet: Heart Healthy Diet, Diabetic Diet Activity: As Tolerated, No Strenuous Activities Showering/Bathing: May Shower Notify Provider of: Fever, Increased Pain, Swelling and Redness, Drainage, Nausea and/or Vomiting Other/Special Instructions: Monitor Blood pressures at home keep log to bring to Dr Thacker. Monitor blood sugars at home, and watch diet closely. - Discharge Plan *PRESCRIPTION DRUG MONITORING PROGRAM REVIEWED*: Not Applicable *COPY OF PRESCRIPTION DRUG MONITORING REPORT IN PATIENT NIRMAL: Not Applicable Prescriptions/Med Rec: Aspirin 81 mg PO DAILY #60 tab.chew atorvaSTATin [Lipitor] 80 mg PO BEDTIME #60 tablet Home Medications: Home Meds Ferrous Sulfate [Iron] 325 mg PO DAILY 09/08/15 [History] Losartan [Cozaar] 100 mg PO DAILY 09/08/15 [History] metFORMIN [Glucophage] 1,000 mg PO BID 09/08/15 [History] Empagliflozin [Jardiance] 25 mg PO DAILY 07/13/20 [History] Ozempic 0.5 mg SQ WEEKLY 07/13/20 [History] Potassium Chloride [K-Tab ER] 10 meq PO DAILY 07/13/20 [History] amLODIPine Besylate [Amlodipine Besylate] 10 mg PO DAILY 07/13/20 [History] Aspirin 81 mg PO DAILY #60 tab.chew 07/25/20 [Rx] atorvaSTATin [Lipitor] 80 mg PO BEDTIME #60 tablet 07/25/20 [Rx] Oxygen Therapy Mode: Room Air Referrals: Fiona Lizarraga MD [Physician] - Compa Thacker MD [Primary Care Provider] - - Discharge Summary/Plan Comment DC Time >30 min.: No - Patient Data Vitals - Most Recent: Last Vital Signs Temp 97.7 F 07/25/20 07:42 Pulse 87 07/25/20 07:42 Resp 16 07/25/20 07:42 BP 133/79 07/25/20 08:27 Pulse Ox 97 07/25/20 07:42 Weight - Most Recent: 102.3 kg I&O - Last 24 hours: Intake & Output 07/24/20 07/25/20 07/25/20 22:59 06:59 14:59 Intake Total 650 Balance 650 Lab Results - Last 24 hrs: Laboratory Results - last 24 hr 07/24/20 07/24/20 07/24/20 Range/Units 08:35 10:39 17:04 WBC (4.0-11.0) K/uL RBC (4.30-5.90) M/uL Hgb (12.0-16.0) g/dL Hct (36.0-46.0) % MCV (80.0-98.0) fL MCH (27.0-32.0) pg MCHC (31.0-37.0) g/dL RDW Std Deviation (28.0-62.0) fl RDW Coeff of Guy (11.0-15.0) % Plt Count (150-400) K/uL MPV (7.40-12.00) fL Neut % (Auto) (48.0-80.0) % Lymph % (Auto) (16.0-40.0) % [place] % (Auto) (0.0-15.0) % Eos % (Auto) (0.0-7.0) % Baso % (Auto) (0.0-1.5) % Neut # (Auto) (1.4-5.7) K/uL Lymph # (Auto) (0.6-2.4) K/uL [place]ley # (Auto) (0.0-0.8) K/uL Eos # (Auto) (0.0-0.7) K/uL Baso # (Auto) (0.0-0.1) K/uL Nucleated RBC % /100WBC Nucleated RBCs # K/uL Sodium (136-145) mmol/L Potassium (3.5-5.1) mmol/L Chloride (98-107) mmol/L Carbon Dioxide (21.0-32.0) mmol/L BUN (7.0-18.0) mg/dL Creatinine (0.6-1.0) mg/dL Est Cr Clr Drug Dosing mL/min Estimated GFR (MDRD) ml/min Glucose (74-106) mg/dL POC Glucose 146 H (60-110) mg/dL Hemoglobin A1c (4.5-6.2) % Calcium (8.5-10.1) mg/dL Magnesium 2.0 (1.8-2.4) mg/dL Triglycerides (0-200) mg/dL Cholesterol (50-200) mg/dL LDL Cholesterol, Calc (60-180) mg/dL VLDL Cholesterol (5-55) mg/dL HDL Cholesterol (40-60) mg/dL Cholesterol/HDL Ratio (3.3-6.0) SARS-CoV-2 RNA (ALONDRA) NEGATIVE (NEGATIVE) 07/24/20 07/25/20 07/25/20 Range/Units 18:04 05:21 05:21 WBC 8.80 (4.0-11.0) K/uL RBC 4.83 (4.30-5.90) M/uL Hgb 12.9 (12.0-16.0) g/dL Hct 39.7 (36.0-46.0) % MCV 82.2 (80.0-98.0) fL MCH 26.7 L (27.0-32.0) pg MCHC 32.5 (31.0-37.0) g/dL RDW Std Deviation 48.1 (28.0-62.0) fl RDW Coeff of Guy 16 H (11.0-15.0) % Plt Count 319 (150-400) K/uL MPV 10.60 (7.40-12.00) fL Neut % (Auto) 51.2 (48.0-80.0) % Lymph % (Auto) 40.7 H (16.0-40.0) % [place]ley % (Auto) 6.4 (0.0-15.0) % Eos % (Auto) 1.5 (0.0-7.0) % Baso % (Auto) 0.2 (0.0-1.5) % Neut # (Auto) 4.5 (1.4-5.7) K/uL Lymph # (Auto) 3.6 H (0.6-2.4) K/uL Schley # (Auto) 0.6 (0.0-0.8) K/uL Eos # (Auto) 0.1 (0.0-0.7) K/uL Baso # (Auto) 0.0 (0.0-0.1) K/uL Nucleated RBC % 0.0 /100WBC Nucleated RBCs # 0 K/uL Sodium 139 140 (136-145) mmol/L Potassium 3.1 L 3.4 L (3.5-5.1) mmol/L Chloride 103 104 (98-107) mmol/L Carbon Dioxide 28.3 27.6 (21.0-32.0) mmol/L BUN 7 6 L (7.0-18.0) mg/dL Creatinine 0.7 0.7 (0.6-1.0) mg/dL Est Cr Clr Drug Dosing 75.20 75.20 mL/min Estimated GFR (MDRD) > 60.0 > 60.0 ml/min Glucose 156 H 124 H (74-106) mg/dL POC Glucose (60-110) mg/dL Hemoglobin A1c (4.5-6.2) % Calcium 9.0 8.5 (8.5-10.1) mg/dL Magnesium (1.8-2.4) mg/dL Triglycerides (0-200) mg/dL Cholesterol (50-200) mg/dL LDL Cholesterol, Calc (60-180) mg/dL VLDL Cholesterol (5-55) mg/dL HDL Cholesterol (40-60) mg/dL Cholesterol/HDL Ratio (3.3-6.0) SARS-CoV-2 RNA (ALONDRA) (NEGATIVE) 10/13/20 10/13/20 10/13/20 Range/Units 05:21 05:21 06:38 WBC (4.0-11.0) K/uL RBC (4.30-5.90) M/uL Hgb (12.0-16.0) g/dL Hct (36.0-46.0) % MCV (80.0-98.0) fL MCH (27.0-32.0) pg MCHC (31.0-37.0) g/dL RDW Std Deviation (28.0-62.0) fl RDW Coeff of Guy (11.0-15.0) % Plt Count (150-400) K/uL MPV (7.40-12.00) fL Neut % (Auto) (48.0-80.0) % Lymph % (Auto) (16.0-40.0) % Schley % (Auto) (0.0-15.0) % Eos % (Auto) (0.0-7.0) % Baso % (Auto) (0.0-1.5) % Neut # (Auto) (1.4-5.7) K/uL Lymph # (Auto) (0.6-2.4) K/uL Schley # (Auto) (0.0-0.8) K/uL Eos # (Auto) (0.0-0.7) K/uL Baso # (Auto) (0.0-0.1) K/uL Nucleated RBC % /100WBC Nucleated RBCs # K/uL Sodium (136-145) mmol/L Potassium (3.5-5.1) mmol/L Chloride (98-107) mmol/L Carbon Dioxide (21.0-32.0) mmol/L BUN (7.0-18.0) mg/dL Creatinine (0.6-1.0) mg/dL Est Cr Clr Drug Dosing mL/min Estimated GFR (MDRD) ml/min Glucose (74-106) mg/dL POC Glucose 117 H (60-110) mg/dL Hemoglobin A1c 7.6 H (4.5-6.2) % Calcium (8.5-10.1) mg/dL Magnesium (1.8-2.4) mg/dL Triglycerides 47 (0-200) mg/dL Cholesterol 163 (50-200) mg/dL LDL Cholesterol, Calc 85 (60-180) mg/dL VLDL Cholesterol 9 (5-55) mg/dL HDL Cholesterol 69 H (40-60) mg/dL Cholesterol/HDL Ratio 2.4 L (3.3-6.0) SARS-CoV-2 RNA (ALONDRA) (NEGATIVE) Med Orders - Current: Current Medications Amlodipine Besylate (Norvasc) 10 mg PO DAILY [facility] Last Admin: 07/25/20 08:27 Dose: 10 mg Documented by: Aspirin (Aspirin) 81 mg PO DAILY [facility] Atorvastatin Calcium (Lipitor) 80 mg PO BEDTIME [facility] Ferrous Sulfate (Ferrous Sulfate) 325 mg PO DAILY [facility] Last Admin: 07/25/20 08:27 Dose: 325 mg Documented by: Insulin Aspart (Novolog) 0 unit SUBCUT TIDAC [facility]; Protocol Last Admin: 07/25/20 07:03 Dose: Not Given Documented by: Losartan Potassium (Cozaar) 100 mg PO DAILY [facility] Last Admin: 07/25/20 08:27 Dose: 100 mg Documented by: Sodium Chloride (Saline Flush) 10 ml FLUSH ASDIRECTED PRN PRN Reason: Keep Vein Open Last Admin: 07/24/20 08:27 Dose: 10 ml Documented by: Sodium Chloride (Saline Flush) 2.5 ml FLUSH ASDIRECTED PRN PRN Reason: Keep Vein Open Last Admin: 07/24/20 08:27 Dose: 2.5 ml Documented by: Sodium Chloride (Normal Saline) 10 ml IV ASDIRECTED PRN PRN Reason: IV Use Discontinued Medications Aspirin (Aspirin) 324 mg PO ONETIME ONE Stop: 07/24/20 08:17 Last Admin: 07/24/20 08:27 Dose: 324 mg Documented by: Atorvastatin Calcium (Lipitor) 40 mg PO BEDTIME [facility] Atorvastatin Calcium (Lipitor) 80 mg PO BEDTIME [facility] Diphenhydramine HCl (Benadryl) 25 mg PO ONETIME ONE Stop: 07/24/20 10:18 Last Admin: 07/24/20 10:22 Dose: 25 mg Documented by: Gadobenate Dimeglumine (Multihance) 20 ml IVPUSH ONETIME STA Stop: 07/25/20 09:25 Last Admin: 07/25/20 09:26 Dose: 20 ml Documented by: Magnesium Sulfate 2 gm/ Premix 50 mls @ 50 mls/hr IV ONETIME ONE Stop: 07/24/20 10:24 Last Admin: 07/24/20 09:40 Dose: 50 mls/hr Documented by: Potassium Chloride (Potassium Chloride) 60 meq PO ONETIME ONE Stop: 07/24/20 09:26 Last Admin: 07/24/20 09:40 Dose: 60 meq Documented by: Potassium Chloride (Klor-Con M20) 60 meq PO ONETIME ONE Stop: 07/24/20 18:54 Last Admin: 07/24/20 19:46 Dose: 60 meq Documented by: Potassium Chloride (Klor-Con M20) 40 meq PO ONETIME ONE Stop: 07/25/20 07:58 Last Admin: 07/25/20 08:28 Dose: 40 meq Documented by:
[2020-07-25 11:53] VITALS: BP 137/78; PULSE 88
== END 2020-07-25 15:00 | disposition home or self-care (01) ==
LOC: MW.ED 07:38 → MW.MS 12:16
PROVIDERS: ADMIT Internal Medicine; ATTEND Internal Medicine
DX: I63.9 Cerebral infarction, unspecified (principal); E11.9 Type 2 diabetes mellitus without complications; I10 Essential (primary) hypertension; E66.9 Obesity, unspecified; E87.6 Hypokalemia; R20.2 Paresthesia of skin; Z79.84 Long term (current) use of oral hypoglycemic drugs; Z79.899 Other long term (current) drug therapy; Z20.828 Contact with and (suspected) exposure to other viral communicable diseases; Z68.41 Body mass index [BMI] 40.0-44.9, adult
CPT/HCPCS: 36415; 70450; 70496; 70498; 70553; 80048; 80053; 80061; 82962; 83036; 83735; 84484; 85025; 85610; 85730; 87635; 93005; 96365; 96366; 99285; A9270; A9577; G0378; J3475; U0002